=== PATIENT | male | born 1965 | race Caucasian/White ===

== ENCOUNTER 2021-12-21 11:50 | Emergency (ER) | payer MEDICAID ==
[~2021-12-21] VITALS: Ht 172.7 cm; Wt 90.7 kg
[2021-12-21 12:00] VITALS: BP 132/78
--- NOTE | 2021-12-21 12:00 | NUR ---
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
--- NOTE | 2021-12-21 12:01 | NUR ---
BIB family for chronic back and neck pain for 20 years. Pt has PCP and ortho but would like a stronger pain medication. Denies any recent trauma. No visual deformities noted. Denies PMHX NKA
[2021-12-21] MEDS ORDERED: KETOROLAC 30 MG/ML VIAL IM ONE (12:25)
[2021-12-21] MEDS ORDERED: ACET-8386 PO (12:45)
[2021-12-21] MEDS ORDERED: NAPR-1704 PO (12:45)
--- NOTE | 2021-12-21 13:15 | NUR ---
Patient discharged with v/s stable. Written and verbal after care instructions about Chronic back pain given and explained. Patient alert, oriented and verbalized understanding of instructions. Ambulatory with steady gait. All questions addressed prior to discharge. ID band removed. Patient advised to follow up with PMD. Rx of Hydrocodone, naprosyn given. Patient educated on indication of medication including possible reaction and side effects. Opportunity to ask questions provided and answered.
[2021-12-21] MEDS ORDERED: CRUSHER, PILL MC ONE (13:58)
== END 2021-12-21 13:15 | disposition home or self-care (01) ==
LOC: MED 11:50
DX: M54.50 Low back pain, unspecified (principal)
CPT/HCPCS: 96372; 99283; J1885